=== PATIENT | female | born 1975 | race African-American/Black ===

== ENCOUNTER 2023-11-24 10:15 | Emergency (ER) | payer OTHER ==
[~2023-11-24] VITALS: Ht 152.4 cm; Wt 95.0 kg
[2023-11-24 10:56] VITALS: TEMP 99.3; O2SAT 99
[2023-11-24 11:19] LABS: Urine Bacteria FEW /hpf (None Seen); Urine Blood Negative /uL (Negative); Urine Clarity Clear (Clear); Urine Color Yellow (Yellow); Urine Mucus FEW (None Seen); Urine Protein, UAD TRACE (Negative); Urine Specific Gravity 1.013 (1.001-1.035); Urine Urobilinogen Normal (Negative); Urine WBC 1 /hpf (0 - 5); Urine pH 5.5 (5.0-8.0)
[2023-11-24] MEDS ORDERED: PROMETHAZINE HCL 25 MG/ML 1ML IM ONE (11:30)
[2023-11-24] MEDS ORDERED: MEPERIDINE HCL (50 MG/ML) 1 ML VIAL IM ONE (11:30)
[2023-11-24] MEDS ORDERED: TRAM50TA2 PO ×3 (12:46→16:54)
[2023-11-24] MEDS ORDERED: PRED20TA2 PO ×3 (12:46→16:54)
[2023-11-24 12:53] VITALS: BP 131/87; PULSE 78; RESP 17
== END 2023-11-24 12:58 | disposition home or self-care (01) ==
LOC: ER 10:15
DX: M51.16 Intervertebral disc disorders with radiculopathy, lumbar region (principal); J45.909 Unspecified asthma, uncomplicated
CPT/HCPCS: 72131; 81001; 96372; 99285; J2175; J2550